=== PATIENT | female | born 1990 | race African-American/Black ===

== ENCOUNTER 2016-06-19 11:39 | Inpatient (IN) | payer OTHER ==
[~2016-06-19] VITALS: Ht 154.9 cm; Wt 80.7 kg
[~2016-06-19 11:39] MED LIST: BUPIVACAINE 0.5% PF 10ML EPIDURAL ONE
[2016-06-19] MEDS ORDERED: ONDANSETRON 4 MG VIAL IV PRN (12:00)
[2016-06-19] MEDS ORDERED: CEFAZOLIN (LD/OB) 100 ML IV PRN (12:00)
[2016-06-19] MEDS ORDERED: PROMETHAZINE 25 MG/ML VIAL IV PRN (12:00)
[2016-06-19] MEDS ORDERED: FAMOTIDINE 20 MG INJ IV PRN (12:00)
[2016-06-19] MEDS ORDERED: METOCLOPRAMIDE 10 MG/2 ML VIAL IV PUSH PRN (12:00)
[2016-06-19] MEDS ORDERED: FAMOTIDINE 20 MG TAB PO PRN (12:00)
[2016-06-19] MEDS ORDERED: LIDOCAINE 1% BUFFERED 1 ML SYR INTRADERM PRN (12:00)
[2016-06-19] MEDS ORDERED: TERBUTALINE 1 MG/ML VIAL SUBQ PRN (12:00)
[2016-06-19] MEDS ORDERED: ALU/MAG/SIM 30 ML UDC PO PRN (12:00)
[2016-06-19] MEDS ORDERED: LIDOCAINE 1% 30 ML PF INFILTRATE ONE (12:00)
[2016-06-19] MEDS: LACT RINGERS 1,000 ML IV SCH ×3 (15:05→20:00)
[2016-06-19 15:11] VITALS: Ht 154.9 cm; Wt 80.7 kg
[2016-06-19] MEDS ORDERED: Flu Vaccine Quadrivalent 60 MCG/0.5 ML IM.VACC ONE (15:15)
[2016-06-19] MEDS ORDERED: ROPIV/FENT 0.2%-2MCG/ML 100 ML EPIDURAL ONE (19:00)
[2016-06-19] MEDS ORDERED: FENTANYL 100 MCG/2 ML AMP ONE (19:01)
[2016-06-19] MEDS ORDERED: SODIUM CHLORIDE 0.9% 500 ML IV PRN (19:30)
[2016-06-19] MEDS ORDERED: LACT RINGERS 500 ML IV PRN (19:30)
[2016-06-19] MEDS ORDERED: FENTANYL 100 MCG/2 ML AMP EPIDURAL ONE (19:30)
[2016-06-19] MEDS ORDERED: LACT RINGERS 500 ML IV ONE (19:30)
[2016-06-19] MEDS ORDERED: ROPIV/FENT 0.2%-2MCG/ML 100 ML EPIDURAL SCH (19:30)
[2016-06-19] MEDS ORDERED: OXYTOCIN 15 UNITS/250 ML NS 500 ML IV ONE (19:45)
[2016-06-19] MEDS ORDERED: LIDOCAINE 1% 30 ML PF ONE (19:46)
[2016-06-19] MEDS ORDERED: **ONLY ANESTEHSIA MAY ORDER OPIATES WHILE ON EPIDURAL XX SCH (20:00)
[2016-06-19] MEDS ORDERED: OXYTOCIN 15 UNITS/250 ML NS 250 ML IV SCH ×2 (21:05→23:10)
[2016-06-19 23:00] VITALS: BP_SYST 137; RESP 20; TEMP 98.2
[2016-06-19] MEDS ORDERED: ASTRINGENT MED PADS 40'S TOPICAL PRN (23:10)
[2016-06-19] MEDS ORDERED: MEASLES,MUMPS,RUBELLA VAC SUBQ.VACC ONE (23:10)
[2016-06-19] MEDS ORDERED: ZOLPIDEM 5 MG TAB PO PRN (23:10)
[2016-06-19] MEDS ORDERED: MAG HYDROX 30 ML UDC PO PRN (23:10)
[2016-06-19] MEDS ORDERED: DERMOPLAST SPRAY TOPICAL PRN (23:10)
[2016-06-19] MEDS ORDERED: BISACODYL 10 MG SUPP RECTAL PRN (23:10)
[2016-06-19] MEDS ORDERED: TDaP 0.5 ML VIAL IM.VACC ONE (23:10)
[2016-06-19 23:15] VITALS: BP_SYST 140; RESP 18
[2016-06-19 23:30] VITALS: BP_SYST 134; RESP 16
[2016-06-19 23:45] VITALS: BP_SYST 140; RESP 16
[2016-06-20] VITALS (10 sets, daily range): BP systolic 125–151; RESP 16–18; TEMP 97.7–98.6
[2016-06-20] MEDS: Ibuprofen 600 MG TAB PO SCH ×5 (01:25→23:18)
[2016-06-20] MEDS: OXYCODONE/APAP 5/325 TAB PO PRN ×3 (03:26→21:28)
[2016-06-20] MEDS: DOCUSATE SOD 100 MG CAP PO SCH (08:04)
[2016-06-20] MEDS: NIFEdipine XL 60 MG TAB PO SCH (08:58)
[2016-06-21 05:46] VITALS: BP_SYST 121; RESP 18; TEMP 98.3
[2016-06-21] MEDS: Ibuprofen 600 MG TAB PO SCH ×2 (05:48→11:35)
[2016-06-21] MEDS: NIFEdipine XL 60 MG TAB PO SCH (08:36)
[2016-06-21] MEDS: DOCUSATE SOD 100 MG CAP PO SCH (08:36)
[2016-06-21 09:22] VITALS: BP_SYST 132; RESP 20; TEMP 98
[2016-06-21] MEDS: OXYCODONE/APAP 5/325 TAB PO PRN (10:23)
[2016-06-21 17:11] VITALS: BP_SYST 133; RESP 18; TEMP 98
[2016-06-21 17:30] VITALS: BP_SYST 133; RESP 18; TEMP 98
== END 2016-06-21 17:54 | disposition home or self-care (01) | DRG 775 ==
LOC: LD 14:42 → OB 06-20 02:00
PROVIDERS: ADMIT Obstetrics & Gynecology; ATTEND Obstetrics & Gynecology
PROC: 10E0XZZ Delivery of Products of Conception, External Approach (ICD-10-PCS; principal; 2016-06-19)
DX: O13.4 Gestational [pregnancy-induced] hypertension without significant proteinuria, complicating childbirth (principal); O66.0 Obstructed labor due to shoulder dystocia; Z3A.32 32 weeks gestation of pregnancy; Z37.0 Single live birth; Z23 Encounter for immunization
CPT/HCPCS: 80053; 82803; 85014; 85018; 85025; 90471